=== PATIENT | female | born 1935 | race Caucasian/White ===

== ENCOUNTER → 2019-04-25 | Outpatient (CLI) | payer MEDICARE | END | disposition home or self-care (01) | LOC: LAB SHORT 12:38 → PLD 12:38 | DX: L60.2 Onychogryphosis (principal); B35.1 Tinea unguium | CPT/HCPCS: 88305; 88312 ==

== ENCOUNTER 2020-01-10 22:18 | Emergency (ER) | payer MEDICARE ==
[~2020-01-10] VITALS: Ht 144.8 cm; Wt 42.2 kg
[2020-01-10] MEDS ORDERED: VITAMIN D3125 MC1 PO (22:39)
[2020-01-10] MEDS ORDERED: ESOM20 PO (22:39)
[2020-01-10] MEDS ORDERED: [UNRECOGNIZED DRUG - OTHER] PO (22:40)
[2020-01-10 22:44] LABS: BASOPHILS ABSOLUTE AUTO 0.06 K/mm3 (0.00-0.23); BASOPHILS PERCENT AUTO 1 % (0-2); EOSINOPHILS ABSOLUTE AUTO 0.24 K/mm3 (0.00-0.68); EOSINOPHILS PERCENT AUTO 3 % (0-6); Hemoglobin 14.3 g/dL (11.5-16.0); IMMATURE GRAN ABSOLUTE AUTO 0.04 K/mm3 (0.00-0.10); IMMATURE GRAN PERCENT AUTO 0 % (0-1); LYMPHOCYTES ABSOLUTE AUTO 2.67 K/mm3 (0.84-5.20); LYMPHOCYTES PERCENT AUTO 28 % (21-46); MONOCYTES ABSOLUTE AUTO 1.01 K/mm3 (0.16-1.47); MONOCYTES PERCENT AUTO 11 % (4-13); Mean Corpuscular HGB Conc 32.5 g/dL (31.5-36.5); Mean Corpuscular Volume 89 fL (80-100); Mean Platelet Volume 10.6 fL (9.1-12.4); NEUTROPHILS ABSOLUTE AUTO 5.56 K/mm3 (1.96-9.15); NEUTROPHILS PERCENT AUTO 58 % (41-73); Platelet Count 365 K/mm3 (150-400); RDW Coefficient Variation 12.7 % (11.7-14.2); RDW Standard Deviation 41.8 fL (35.1-46.3); Red Blood Cell Count 4.93 M/mm3 (3.80-5.20); White Blood Cell Count 9.58 K/mm3 (4.00-11.30)
[2020-01-10 22:56] LABS: Source, Urine Catheter
[2020-01-10 22:58] LABS: Bilirubin, Urine Neg (Neg); Blood, Urine 5+ (Neg); Glucose Qualitative, Urine Neg (Neg); Ketones, Urine Neg (Neg); Leukocyte Esterase, Urine 1+ (Neg); Nitrite, Urine Pos (Neg); Protein, Urine 2+ (Neg); Specific Gravity, Urine 1.025 (1.003-1.022); Urobilinogen, Urine NORM (Normal)
[2020-01-10 23:01] LABS: Appearance, Urine Clear (Clear); Color, Urine Yellow (P-Yellow)
[2020-01-10 23:01] LABS: Alanine Aminotransfer (ALT/SGP 20 U/L (12-78); Albumin, Blood 3.5 g/dL (3.4-5.0); Alk Phos 118 U/L (50-136); Anion Gap 4 mmol/L (6-16); Aspartate Aminotrans (AST/SGOT 17 U/L (12-37); Bilirubin, Total 0.2 mg/dL (0.1-1.0); Blood Urea Nitrogen 21 mg/dL (8-24); Bun/Creatinine Ratio 25.1 (12.0-20.0); CO2, Blood 27 mmol/L (21-32); Calcium, Blood 10.5 mg/dL (8.5-10.1); Chloride, Blood 111 mmol/L (98-108); Creatinine, Blood 0.84 mg/dL (0.40-1.00); Globulin, Blood 3.4 g/dL (2.2-4.0); Glomerular Filtration Rate >60 (60-); Glucose, Blood 136 mg/dL (70-99); Potassium, Blood 3.8 mmol/L (3.5-5.5); Sodium, Blood 142 mmol/L (136-145); Total Protein, Blood 6.9 g/dL (6.4-8.2)
[2020-01-10 23:04] LABS: Bacteria Many /hpf; Squamous Epithelial Cells Few /hpf (Few)
[2020-01-11] MEDS ORDERED: Cipro500 MG PO (00:17)
[2020-01-11] MEDS ORDERED: Flagyl500 MG PO (00:18)
== END 2020-01-11 00:31 | disposition home or self-care (01) ==
LOC: ER 22:18
PROVIDERS: Emergency Medicine
DX: N39.0 Urinary tract infection, site not specified (principal); K21.9 Gastro-esophageal reflux disease without esophagitis; I10 Essential (primary) hypertension; F03.90 Unspecified dementia, unspecified severity, without behavioral disturbance, psychotic disturbance, mood disturbance, and anxiety
CPT/HCPCS: 80053; 81001; 83690; 85025; 87077; 87086; 87186; 93005; 93010; 96374; 99284-25; J2405

== ENCOUNTER 2020-01-14 20:45 | Inpatient (IN) | payer MEDICARE ==
[~2020-01-14] VITALS: Ht 144.8 cm; Wt 47.6 kg
[~2020-01-14 20:45] MED LIST: Cipro500 MG PO; ESOM20 PO; Flagyl500 MG PO; VITAMIN D3125 MC1 PO; [UNRECOGNIZED DRUG - OTHER] PO
[2020-01-14 21:26] LABS: BASOPHILS ABSOLUTE AUTO 0.01 K/mm3 (0.00-0.23); BASOPHILS PERCENT AUTO 0 % (0-2); EOSINOPHILS ABSOLUTE AUTO 0.27 K/mm3 (0.00-0.68); EOSINOPHILS PERCENT AUTO 2 % (0-6); Hematocrit 48.1 % (33.0-51.0); Hemoglobin 15.6 g/dL (11.5-16.0); IMMATURE GRAN ABSOLUTE AUTO 0.11 K/mm3 (0.00-0.10); IMMATURE GRAN PERCENT AUTO 1 % (0-1); LYMPHOCYTES ABSOLUTE AUTO 0.33 K/mm3 (0.84-5.20); LYMPHOCYTES PERCENT AUTO 2 % (21-46); MONOCYTES ABSOLUTE AUTO 0.68 K/mm3 (0.16-1.47); MONOCYTES PERCENT AUTO 5 % (4-13); Mean Corpuscular HGB 29.1 pg (26.0-34.0); Mean Corpuscular HGB Conc 32.4 g/dL (31.5-36.5); Mean Corpuscular Volume 90 fL (80-100); Mean Platelet Volume 10.9 fL (9.1-12.4); NEUTROPHILS ABSOLUTE AUTO 13.84 K/mm3 (1.96-9.15); NEUTROPHILS PERCENT AUTO 91 % (41-73); Platelet Count 287 K/mm3 (150-400); RDW Coefficient Variation 12.5 % (11.7-14.2); RDW Standard Deviation 41.4 fL (35.1-46.3); Red Blood Cell Count 5.36 M/mm3 (3.80-5.20); White Blood Cell Count 15.24 K/mm3 (4.00-11.30)
[2020-01-14 21:38] LABS: Source, Urine Catheter
[2020-01-14 21:41] LABS: Alanine Aminotransfer (ALT/SGP 18 U/L (12-78); Albumin, Blood 3.4 g/dL (3.4-5.0); Albumin/Globulin Ratio 0.9 (0.8-1.8); Alk Phos 103 U/L (50-136); Anion Gap 7 mmol/L (6-16); Aspartate Aminotrans (AST/SGOT 21 U/L (12-37); Bilirubin, Total 0.5 mg/dL (0.1-1.0); Blood Urea Nitrogen 14 mg/dL (8-24); Bun/Creatinine Ratio 16.5 (12.0-20.0); CO2, Blood 26 mmol/L (21-32); Calcium, Blood 10.5 mg/dL (8.5-10.1); Chloride, Blood 107 mmol/L (98-108); Creatinine, Blood 0.85 mg/dL (0.40-1.00); Globulin, Blood 3.6 g/dL (2.2-4.0); Glomerular Filtration Rate >60 (60-); Glucose, Blood 137 mg/dL (70-99); Magnesium, Blood 1.7 mg/dL (1.6-2.4); Potassium, Blood 3.5 mmol/L (3.5-5.5); Sodium, Blood 140 mmol/L (136-145); Troponin I <0.015 ng/mL (0.000-0.040)
[2020-01-14 21:41] LABS: Appearance, Urine Clear (Clear); Bilirubin, Urine Neg (Neg); Blood, Urine 1+ (Neg); Color, Urine Amber (P-Yellow); Glucose Qualitative, Urine Neg (Neg); Ketones, Urine 3+ (Neg); Leukocyte Esterase, Urine 2+ (Neg); Nitrite, Urine Pos (Neg); Protein, Urine 2+ (Neg); Urobilinogen, Urine NORM (Normal); pH, Urine 6.5 (5.0-8.0)
[2020-01-14 21:53] LABS: Red Blood Cells, Urine 0-2 /hpf (0-2); Squamous Epithelial Cells Few /hpf (Few)
[2020-01-14 21:54] LABS: Bacteria Few /hpf
[2020-01-14 22:25] LABS: Base Excess Venous 2.1 mmol/L; Bicarbonate Venous 25.4 mmol/L (24.0-30.0); PCO2 Venous 47.2 mmHg (38-42); PO2 Venous 54.3 mmHg (38-42); pH Blood Venous 7.37 (7.34-7.37)
[2020-01-14] MEDS ORDERED: Nitrofurantoin100 M1 PO (23:17)
[2020-01-14] MEDS ORDERED: PROBIOTIC250 MG PO (23:56)
--- NOTE | 2020-01-15 04:49 | NUR ---
SHIFT SUMMARY PT ER ADMIT THIS SHIFT FOR UTI. PT IS A/O TO SELF, FAMILY AND FOLLOWING DIRECTIONS. WHEN ASKED IF SHE KNEW WHERE SHE WAS SHE WAS UNABLE TO PROVIDE ME WITH AN ANSWER. PT IS PLESANT AND COOPERATIVE. PT PRESENTS WITH DIFFUSE RED RASH PRIMARILY TO ABD, BACK, UPPER CHEST AND ARMS. POSSIBLY A REACTION TO PO ABX PT WAS TAKING AT HOME PRIOR TO HER ADMISSION TO TREAT HER UTI. SHE HAS NOT COMPLAINED OF ANY PAIN TO THE AREAS OF IRRITATION. PT WITHOUT RESPIRATORY DISTRESS. THERE ARE NO ACCOMPANYING SYMPTOMS WITH THE RASH. PT RECEIVED IV ABX WHILE IN THE ER. PT RECEIVING IVF ORDERED. PT 1 PA ASSIST TO BSC. VITALS ARE STABLE. ADMISSION COMPLETE. BED IN LOWEST POSITION, [facility] WILL CONTINUE TO MONITOR AND REPORT TO ONCOMING RN.
[2020-01-15 05:25] LABS: Anion Gap 8 mmol/L (6-16); Blood Urea Nitrogen 12 mg/dL (8-24); CO2, Blood 21 mmol/L (21-32); Calcium, Blood 9.5 mg/dL (8.5-10.1); Chloride, Blood 114 mmol/L (98-108); Creatinine, Blood 0.75 mg/dL (0.40-1.00); Glomerular Filtration Rate >60 (60-); Glucose, Blood 117 mg/dL (70-99); Potassium, Blood 3.7 mmol/L (3.5-5.5); Sodium, Blood 143 mmol/L (136-145)
[2020-01-15 05:49] LABS: BASOPHILS ABSOLUTE AUTO 0.01 K/mm3 (0.00-0.23); BASOPHILS PERCENT AUTO 0 % (0-2); EOSINOPHILS ABSOLUTE AUTO 0.33 K/mm3 (0.00-0.68); EOSINOPHILS PERCENT AUTO 3 % (0-6); Hematocrit 43.7 % (33.0-51.0); Hemoglobin 13.7 g/dL (11.5-16.0); IMMATURE GRAN ABSOLUTE AUTO 0.06 K/mm3 (0.00-0.10); IMMATURE GRAN PERCENT AUTO 1 % (0-1); LYMPHOCYTES ABSOLUTE AUTO 0.26 K/mm3 (0.84-5.20); LYMPHOCYTES PERCENT AUTO 2 % (21-46); MONOCYTES ABSOLUTE AUTO 0.63 K/mm3 (0.16-1.47); MONOCYTES PERCENT AUTO 5 % (4-13); Mean Corpuscular HGB 28.3 pg (26.0-34.0); Mean Corpuscular HGB Conc 31.4 g/dL (31.5-36.5); Mean Corpuscular Volume 90 fL (80-100); Mean Platelet Volume 10.8 fL (9.1-12.4); NEUTROPHILS ABSOLUTE AUTO 10.46 K/mm3 (1.96-9.15); NEUTROPHILS PERCENT AUTO 89 % (41-73); Platelet Count 272 K/mm3 (150-400); RDW Coefficient Variation 12.6 % (11.7-14.2); RDW Standard Deviation 41.8 fL (35.1-46.3); Red Blood Cell Count 4.84 M/mm3 (3.80-5.20); White Blood Cell Count 11.75 K/mm3 (4.00-11.30)
--- NOTE | 2020-01-15 16:09 | NUR ---
SHIFT SUMMARY PT IS A/O X 2-3 AND DAUGHTER REPORTS SHE IS CONFUSED AT BASELINE. PT HAS RASH ON TRUNK AND ARMS AND DAUGHTER REPORTS THAT THIS STARTED AFTER HER ABO THAT SHE WAS TAKING AT HOME. NO RESP DISTRESS OBSERVED. PT CONTINUES ON IV FLUIDS ORDERED. PT WORKED WITH THERAPIES TODAY AND THEY REPORTED THAT SHE IS MOST LIKELY AT HER BASELINE. DAUGHTER HAS BEEN AT BEDSIDE MOST OF THE MORNING. PT IS ABLE TO MAKE HER NEEDS KNOWN AND IS RESTING IN BED. HER CALL LIGHT IS IN REACH.
--- NOTE | 2020-01-16 05:57 | NUR ---
01/16/20 0550 AWAKENED PT FOR AM MED AND GIVEN JUICE TO DRINK, PT DISORIENTED TO PLACE, TIME AND EVENT. ASSISTED TO BR FOR VOIDING.
[2020-01-16] MEDS ORDERED: VITAMIN D3125 MC1 PO (11:33)
[2020-01-16] MEDS ORDERED: MIRT15 PO ×2 (11:34→11:36)
[2020-01-16] MEDS ORDERED: CEFU250T47 PO (11:34)
--- NOTE | 2020-01-16 13:09 | NUR ---
DISCHARGE NOTE PT DISCHARGED TO HOME WITH HOME HEALTH. PT'S DAUGHTER IN THE ROOM THROUGHOUT THIS MORNING. PT WORKED WITH PT THIS AM PRIOR TO DISCHARGE, WALKING IN THE GELLER. PT CONTINUES TO BE FORGETFUL. PT ATE LUNCH PRIOR TO DISCHARGE PER DAUGHTER'S REQUEST. PT AND DAUGHTER RECEIVED DISCHARGE INFORMATION, NO QUESTIONS AT THIS TIME. PT TO VEHICLE IN WHEELCHAIR WITH [employer].
== END 2020-01-16 13:05 | disposition home or self-care (01) | DRG 872 ==
LOC: ER 20:45 → MEDS 22:39 → ENPENDDIS 01-16 11:05 → MEDS 01-16 13:05
PROVIDERS: Emergency Medicine; Nurse Practitioner Acute Care; ADMIT Internal Medicine
DX: A41.51 Sepsis due to Escherichia coli [E. coli] (principal); E46 Unspecified protein-calorie malnutrition; N39.0 Urinary tract infection, site not specified; Z68.1 Body mass index [BMI] 19.9 or less, adult; Z16.24 Resistance to multiple antibiotics; F03.90 Unspecified dementia, unspecified severity, without behavioral disturbance, psychotic disturbance, mood disturbance, and anxiety; I10 Essential (primary) hypertension; K21.9 Gastro-esophageal reflux disease without esophagitis; Z51.5 Encounter for palliative care; Z66 Do not resuscitate; Z91.81 History of falling; T36.8X5A Adverse effect of other systemic antibiotics, initial encounter; L27.1 Localized skin eruption due to drugs and medicaments taken internally; Z74.01 Bed confinement status
CPT/HCPCS: 36415; 51701; 71045; 80048; 80053; 81001; 82803; 83605; 83735; 84484; 85025; 87040; 87086; 93005; 93010; 96365-59; 97116; 97162; 97165; 99285-25; A9270; A9270-GY; J0696; J3480; J7030; J7050

== ENCOUNTER → 2020-08-22 | Outpatient (CLI) | payer MEDICARE ==
[~2020-08-22] MED LIST changes: +CEFU250T47 PO; +MIRT15 PO; +Nitrofurantoin100 M1 PO; +PROBIOTIC250 MG PO
[2020-08-22 17:29] LABS: Source, Urine Clean Catch
[2020-08-22 19:04] LABS: Appearance, Urine Clear (Clear); Bilirubin, Urine Neg (Neg); Blood, Urine 1+ (Neg); Color, Urine Yellow (P-Yellow); Glucose Qualitative, Urine Neg (Neg); Ketones, Urine Neg (Neg); Leukocyte Esterase, Urine 1+ (Neg); Nitrite, Urine Pos (Neg); Protein, Urine Neg (Neg); Urobilinogen, Urine NORM (Normal)
[2020-08-22 19:11] LABS: Squamous Epithelial Cells Few /hpf (Few)
[2020-08-22 19:12] LABS: Bacteria Many /hpf; Red Blood Cells, Urine 0-2 /hpf (0-2)
== END | disposition home or self-care (01) ==
LOC: LAB 17:27 → LAB SHORT 17:27
PROVIDERS: Registered Nurse
DX: R41.0 Disorientation, unspecified (principal)
CPT/HCPCS: 81001; 87077; 87086; 87186

== ENCOUNTER → 2020-09-17 | Outpatient (CLI) | payer MEDICARE | END | disposition home or self-care (01) | LOC: LAB SHORT 08:19 → PLD 08:19 | DX: L60.2 Onychogryphosis (principal); B35.1 Tinea unguium | CPT/HCPCS: 88305; 88312 ==

== ENCOUNTER → 2020-11-21 | Outpatient (CLI) | payer MEDICARE | END | disposition home or self-care (01) | LOC: LAB SHORT 18:34 → LAB 18:34 | DX: R35.0 Frequency of micturition (principal); R41.0 Disorientation, unspecified | CPT/HCPCS: 87086 ==